=== PATIENT | female | born 1995 | race Caucasian/White ===

== ENCOUNTER 2022-04-18 15:22 | Emergency (ER) | payer OTHER ==
[2022-04-18 16:13] LABS: HEMOGLOBIN 14.5 gm/dl (12.3-15.3); RED BLOOD COUNT 4.89 M/UL (4.00-5.10); WHITE BLOOD COUNT 15.2 K/UL (4.5-11.0)
[2022-04-18 16:52] LABS: BUN/CREATININE RATIO 9 (0-10)
== END 2022-04-18 21:29 | disposition home or self-care (01) ==
LOC: ER1 15:22
PROVIDERS: Physician Assistant Medical
DX: O21.9 Vomiting of pregnancy, unspecified (principal); Z3A.09 9 weeks gestation of pregnancy; Z88.5 Allergy status to narcotic agent
CPT/HCPCS: 80053; 81001; 83605; 85025; 87040; 96374; 96375; 99284; J0696; J2765